=== PATIENT | female | born 1980 | race Caucasian/White ===

== ENCOUNTER 2019-02-17 13:45 | Outpatient (RCR) | payer OTHER | END 2019-04-13 | disposition still patient (30) | LOC: WSC | DX: M25.511 Pain in right shoulder (principal) ==

== ENCOUNTER 2019-05-26 11:15 | Outpatient (RCR) | payer OTHER | END 2019-08-11 | disposition home or self-care (01) | LOC: WSPT | DX: S43.431A Superior glenoid labrum lesion of right shoulder, initial encounter (principal) ==

== ENCOUNTER 2019-08-22 11:00 | Outpatient (RCR) | payer OTHER | END 2019-08-26 | disposition home or self-care (01) | LOC: WSC | DX: S43.431A Superior glenoid labrum lesion of right shoulder, initial encounter (principal) ==

== ENCOUNTER 2019-10-01 10:30 | Outpatient (RCR) | payer OTHER | END 2019-12-01 | disposition home or self-care (01) | LOC: WSC | DX: S43.431A Superior glenoid labrum lesion of right shoulder, initial encounter (principal) ==